=== PATIENT | female | born 1985 | race African-American/Black ===

== ENCOUNTER 2020-01-09 21:01 | Emergency (ER) | payer SELFPAY ==
[~2020-01-09] VITALS: Ht 162.6 cm; Wt 86.2 kg
[2020-01-09 21:19] VITALS: BP 206/144
[2020-01-10] MEDS ORDERED: fentaNYL CITRATE 100 MCG/2 ML VL ONE (00:42)
[2020-01-10] MEDS ORDERED: SUCCINYLCHOLINE CHLORIDE 20 MG/ML 10ML VIAL IV ONE (00:46)
[2020-01-10] MEDS ORDERED: ROCURONIUM 10MG/ML 10ML VIAL IV ONE (00:49)
[2020-01-10] MEDS ORDERED: PROPOFOL 10 MG/ML 20 ML IV ONE (01:24)
[2020-01-10] MEDS ORDERED: ONDANSETRON HCL 4 MG/2 ML VIAL ONE (01:24)
[2020-01-10] MEDS ORDERED: oxyTOCIN 10 UNIT/ML 10ML VIAL ONE (01:24)
[2020-01-10] MEDS ORDERED: hydrALAZINE HCL 20 MG/ML VL ONE (02:14)
[2020-01-10] MEDS ORDERED: LABETALOL HCL 5 MG/ML 4ML SYRINGE IV PRN (02:15)
[2020-01-10] MEDS ORDERED: METOCLOPRAMIDE HCL 5MG/ml INJ 2ml VIAL IV PRN (02:15)
[2020-01-10] MEDS ORDERED: fentaNYL CITRATE 100 MCG/2 ML VL IV PRN (02:15)
== END 2020-01-09 21:34 | disposition still patient (30) ==
LOC: ER 21:01
DX: O14.93 Unspecified pre-eclampsia, third trimester (principal)
CPT/HCPCS: 82962; J0330; J2405; J2590; J2704

== ENCOUNTER 2020-01-09 21:30 | Inpatient (IN) | payer MEDICAID, OTHER ==
[~2020-01-09] VITALS: Ht 165.1 cm; Wt 87.1 kg
[2020-01-09] MEDS ORDERED: LACTATED RINGER'S 1,000 ML IV SCH (21:51)
[2020-01-09] MEDS ORDERED: MAGNESIUM SULFATE 100 ML IV ONE (22:00)
[2020-01-09] MEDS ORDERED: hydrALAZINE HCL 20 MG/ML VL ONE (22:02)
[2020-01-09] MEDS ORDERED: MAGNESIUM SULFATE 40MG/ML 1,000 ML IV SCH (22:45)
[2020-01-09] MEDS ORDERED: BETAMETHASONE ACET (6MG/ML) 5ML VIAL IM ONE (22:45)
[2020-01-09] MEDS: hydrALAZINE HCL 20 MG/ML VL IV PRN (23:01)
[2020-01-09 23:15] LABS: Albumin 1.4 g/dL (3.4-5.0); Potassium 4.3 mmol/L (3.5-5.1); Uric Acid 6.1 mg/dL (2.6-6.0)
[2020-01-09 23:18] LABS: BUN/Creatinine Ratio 15.7; Bilirubin, Total 0.3 mg/dL (0.2-1.0); Total Protein 5.6 g/dL (6.4-8.2)
[2020-01-09 23:23] LABS: Urine Bacteria NONE SEEN /hpf (None Seen); Urine Blood 2+ /uL (Negative); Urine Specific Gravity 1.003 (1.001-1.035); Urine WBC 1 /hpf (0 - 5)
[2020-01-09 23:37] LABS: Alcohol, Urine < 3.0 mg/dL (0-10); Amphetamine Screen, Urine NEGATIVE (NEGATIVE); Barbiturate Scree,Urine NEGATIVE (NEGATIVE); Benzodiazephine Screen, Urine NEGATIVE (NEGATIVE); Cannabinoid Screen, Urine NEGATIVE (NEGATIVE); Cocaine Screen, Urine NEGATIVE (NEGATIVE); Opiate Scree,Urine NEGATIVE (NEGATIVE); Phencyclidine Screen, Urine NEGATIVE (NEGATIVE)
[2020-01-10] VITALS (10 sets, daily range): BP systolic 124–152; BP diastolic 71–103
[2020-01-10] MEDS ORDERED: GLYCOPYRROLATE 0.2 MG/ML 1ML VIAL ONE (01:29)
[2020-01-10] MEDS ORDERED: LABETALOL HCL 5 MG/ML 4ML SYRINGE IV ONE (01:41)
[2020-01-10] MEDS: LACTATED RINGER'S 1,000 ML IV SCH ×4 (01:44→21:26)
[2020-01-10] MEDS ORDERED: ONDANSETRON HCL 4 MG/2 ML VIAL IV PRN (01:45)
[2020-01-10] MEDS ORDERED: hydrALAZINE HCL 20 MG/ML VL IV ONE (02:15)
[2020-01-10 02:55] LABS: Basophils # (auto) 0.1 10 ^3/uL (0-0.2); Basophils % (auto) 0.4 % (0.0-2.0); Eosinophils # (auto) 0.1 10 ^3/uL (0-0.8); Eosinophils % (auto) 0.2 % (0.0-7.0); Hematocrit 35.8 % (36.0-46.0); Hemoglobin 11.7 g/dL (12.2-16.2); Lymphocytes % (auto) 4.7 % (10.0-50.0); Mean Corpuscular Hemoglobin 28.5 pg (28.0-32.0); Mean Corpuscular Hgb Conc. 32.6 g/dL (32.0-36.0); Mean Corpuscular Volume 87.4 fL (80.0-100.0); Monocytes # (auto) 0.5 10 ^3/uL (0-1.3); Monocytes % (auto) 2.3 % (0.0-12.0); Neutrophils # (auto) 20.4 10 ^3/uL (1.6-8.6); Neutrophils % (auto) 92.4 % (37.0-80.0); Nucleated Red Blood Cells % 0.2 %; Platelet Count (auto) 65 10^3/uL (140-450); Red Cell Distribution Width 15.8 % (11.8-14.3); White Blood Cell 22.1 10^3/uL (4.4-10.8)
[2020-01-10] MEDS ORDERED: methylPREDNISolone SOD SUCC 125 MG/2 ML VL IV STA (03:20)
[2020-01-10] MEDS ORDERED: FUROSEMIDE 40 MG/4 ML VIAL IV SCH (03:27)
[2020-01-10] MEDS ORDERED: IPRATROPIUM BROM 0.5 MG/2.5ML INH SOL NEB PRN (03:30)
[2020-01-10] MEDS ORDERED: ALBUTEROL SULF 2.5 MG/0.5ML(0.5%) NEB SOLN NEB PRN (03:30)
--- NOTE | 2020-01-10 03:30 | NUR ---
Report: Report received from Joseluis Boggs RN IN PACU on stable post-op patient.
--- NOTE | 2020-01-10 03:50 | NUR ---
Transferred: Patient transferred form PACU to LDR 2 by this RN and Joseluis Boggs RN
--- NOTE | 2020-01-10 04:00 | NUR ---
Dr. Mosqueda calls unit and speaks to Mayi PACU nurse. Mayi updates him on patient status, informs him that patient has left PACU and is now in LDRP. This RN speaks to Dr Mosqueda, informs him of therapeutic Magnesium level 5.6. Orders received to decrease magnesium infusion to 1G/hr, and repeat magnesium level 4 hours for last draw. Orders will be endorsed to primary RN.
[2020-01-10] MEDS: ACETAMINOPHEN IV 1000 MG/100ML (10MG/ML) IV PRN ×2 (04:18→21:14)
[2020-01-10] MEDS ORDERED: MAGNESIUM SULFATE 40MG/ML 1,000 ML IV SCH (04:30)
[2020-01-10] MEDS ORDERED: methylPREDNISolone SOD SUCC 125 MG/2 ML VL ONE (05:18)
[2020-01-10] MEDS: HYDROmorphone HCL 2 MG/ML VL IV PRN ×2 (05:28→13:46)
--- NOTE | 2020-01-10 05:52 | NUR ---
Jaylin: Dr. Mosqueda called regarding pitocin infusion. updated on patient status. Order recieved for 20 units of pitocin in 1,000 ml LR running at 30ml/hr. Telephone order read back
[2020-01-10] MEDS ORDERED: LACT. RINGERS/OXYTOCIN 20UNITS 1,000 ML IV ONE (06:00)
--- NOTE | 2020-01-10 06:30 | NUR ---
PERICARE PROVIDED PAD CHANGED, PT CLEANED, FUNDUS FIRM 1 BELOW SCANT BLEEDING DTR +2, DENIES HEADACHE/BLURRY VISION, A&0 X4.
[2020-01-10] MEDS: hydrALAZINE HCL 20 MG/ML VL IV PRN ×4 (08:14→17:48)
[2020-01-10 08:17] LABS: Alanine Aminotransferase 56 U/L (13-56); Albumin 1.3 g/dL (3.4-5.0); Alkaline Phosphatase 176 U/L (45-117); Anion Gap 10 (5-15); Aspartate Aminotransferase 71 U/L (15-37); BUN/Creatinine Ratio 17.4; Bilirubin, Total 0.2 mg/dL (0.2-1.0); Blood Urea Nitrogen 19 mg/dL (7-18); Calcium 7.3 mg/dL (8.5-10.1); Carbon Dioxide 14 mmol/L (21-32); Chloride 109 mmol/L (98-107); GFR African American 73 mL/min; GFR Non-African American 61 mL/min; Glucose 125 mg/dL (74-106); Potassium 4.5 mmol/L (3.5-5.1); Sodium 133 mmol/L (136-145); Total Protein 5.2 g/dL (6.4-8.2)
--- NOTE | 2020-01-10 08:46 | NUR ---
MAG LEVEL Dr. Mosqueda notified of mag level 6.3. Orders received to d/c mag and redraw levels in 2 hours. Blood pressures listed. Mag stopped per md orders.
[2020-01-10] MEDS: ceFAZolin 1GM/50ML 50 ML IV SCH ×3 (09:45→17:51)
--- NOTE | 2020-01-10 11:00 | NUR ---
PERICARE PROVIDED PAD CHANGED, PT CLEANED, FUNDUS FIRM 1 BELOW SCANT BLEEDING DTR +2, DENIES HEADACHE/BLURRY VISION, A&0 X4.
--- NOTE | 2020-01-10 11:37 | NUR ---
HIGH BP Dr barajas made aware of pts trending blood pressures. Orders received to start pt on labetelol 300 mg bid.
[2020-01-10] MEDS ORDERED: LABETALOL HCL 200 MG TAB PO SCH (12:00)
[2020-01-10] MEDS: LABETALOL HCL 200 MG TAB PO SCH ×2 (12:09→21:51)
[2020-01-10 12:37] LABS: Basophils # (auto) 0 10 ^3/uL (0-0.2); Basophils % (auto) 0.1 % (0.0-2.0); Eosinophils # (auto) 0 10 ^3/uL (0-0.8); Hematocrit 36.6 % (36.0-46.0); Hemoglobin 12.3 g/dL (12.2-16.2); Lymphocytes # (auto) 0.8 10 ^3/uL (0.4-5.4); Lymphocytes % (auto) 4.8 % (10.0-50.0); Mean Corpuscular Hemoglobin 28.8 pg (28.0-32.0); Mean Corpuscular Hgb Conc. 33.5 g/dL (32.0-36.0); Mean Corpuscular Volume 86.1 fL (80.0-100.0); Monocytes # (auto) 0.2 10 ^3/uL (0-1.3); Neutrophils # (auto) 15.7 10 ^3/uL (1.6-8.6); Neutrophils % (auto) 94.1 % (37.0-80.0); Nucleated Red Blood Cells % 0.1 %; Platelet Count (auto) 70 10^3/uL (140-450); Red Blood Cells 4.25 10^6/uL (4.0-5.20); Red Cell Distribution Width 15.9 % (11.8-14.3); White Blood Cell 16.7 10^3/uL (4.4-10.8)
[2020-01-10 13:02] LABS: INR 0.83 (0.9-1.15); Partial Thromboplastin Time 27.8 sec (23.64-32.05)
--- NOTE | 2020-01-10 13:04 | NUR ---
Dr. Mosqueda notified of new mag level result of 6.0 BPs listed. Informed pt was started on labetelol 300mgbid per dr. barajas. Orders received to keep pt off mag at this time. Informed I will be getting pt up to ambulate, orders received to keep sullivan in at this time.
--- NOTE | 2020-01-10 14:24 | NUR ---
Dr. Mosqueda rounded on pt with RN Sbar given. Per md wait to get pt up until tonight, if bps have improved. Will continue to monitor.
--- NOTE | 2020-01-10 15:30 | NUR ---
PERICARE PROVIDED PAD CHANGED, PT CLEANED, FUNDUS FIRM 1 BELOW SCANT BLEEDING DTR +2, DENIES HEADACHE/BLURRY VISION, A&0 X4.
--- NOTE | 2020-01-10 17:30 | NUR ---
PERICARE PROVIDED PAD CHANGED, PT CLEANED, FUNDUS FIRM 1 BELOW SCANT BLEEDING
--- NOTE | 2020-01-10 18:06 | NUR ---
PT ASSESSED FOR PRN MED NEB TX. SPO2 96% ON RA, HR 85. PT DENIES ANY RESPIRATORY DISTRESS. PT DENIES ANY PREVIOUS USE OF INHALER OR NEBULIZER. NO SHORTNESS OF BREATH NOTED. NO TX INDICATED AT THIS TIME. WILL CONTINUE TO MONITOR.
--- NOTE | 2020-01-10 23:37 | NUR ---
Dr. Mosqueda at nurses station Update on patient status reviewed trending Blood pressure, labs: Mg 4.7, patient has not ambulated 24 hr at 0104 and Gongora catheter still in. Verbalized understanding. Per Dr. Mosqueda let patient rest for now, may ambulate patient after 24 hours, keep Gongora in until AM about 5:00, hold off on Day 1 Post Op orders until tomorrow, day shift. Continue with POC.
[2020-01-11] MEDS: HYDROmorphone HCL 2 MG/ML VL IV PRN ×2 (00:37→04:48)
[2020-01-11] MEDS: hydrALAZINE HCL 20 MG/ML VL IV PRN ×2 (00:54→11:10)
[2020-01-11] MEDS ORDERED: ceFAZolin 1GM/50ML 50 ML IV ONE (02:00)
[2020-01-11 03:30] VITALS: BP 120/73
--- NOTE | 2020-01-11 04:35 | NUR ---
Ambulation of patient to bedside chair: Clean gown and Pericare in bed with teaching provided. Gongora catheter remains intact no kinks, hung below bladder, draining yellow urine .Hypoactive bowel sounds. ABD incision dressing C/D/I. Applied ABD binder. Fundus firm at U with scant amount of bleeding. Patient out of bed with standby assistance by this RN to bedside chair. Complete linen changed. Ice chips provided. Educated patient about S/S of PPH and to call for assistance, patient verbalized understanding. Patient remains in chair, call light within reach no S/S of distress.
--- NOTE | 2020-01-11 05:45 | NUR ---
Sullivan catheter dc'd Order to discontinue sullivan catheter. Sullivan dc'd with clean technique following deflation of balloon. Patient tolerated well with no complaints of pain. Continue care.
[2020-01-11 06:37] VITALS: BP 129/75
--- NOTE | 2020-01-11 06:58 | NUR ---
PRN [place] TX NOT INDICATED AT THIS TIME. NO SOB OR ANY OTHER RESPIRATORY DISTRESS NOTED. PT ON RA. 97% O2 SATS. WILL CONTINUE TO MONITOR PT.
--- NOTE | 2020-01-11 07:30 | NUR ---
Orders received to leave dressing open to air. Dressing removed, Lower abdominal incision approximated, no drainage/redness/inflammation visualized at time of removal. Patient verbalized understanding and willingness to comply to instructions/teaching provided.
--- NOTE | 2020-01-11 08:10 | NUR ---
Ambulation: Patient OOB with standby assistance by RN. Patient ambulated to bathroom with steady gait. Patient able to void 300 cc without difficulty. Pericare teaching provided with returned demonstration by patient. Clean gown provided and bed linen changed. Patient ambulated back to bed with steady gait and no distress noted.
[2020-01-11] MEDS ORDERED: LACTATED RINGER'S 1,000 ML IV SCH (08:34)
[2020-01-11] MEDS ORDERED: HYDROcodone-ACET 5/325MG TAB PO PRN ×2 (08:45)
--- NOTE | 2020-01-11 09:30 | NUR ---
dr davis updated on pt status with BP readings, orders recieved to saline lock IV, DC lasix, orders carried out
[2020-01-11] MEDS ORDERED: FUROSEMIDE 20 MG/2 ML VIAL IV SCH (10:00)
[2020-01-11] MEDS: LABETALOL HCL 200 MG TAB PO SCH ×2 (10:29→21:24)
[2020-01-11] MEDS: SIMETHICONE 80 MG CHEWABLE TABLET PO PRN (10:29)
[2020-01-11] MEDS: DOCUSATE SOD 100 MG CAP PO SCH ×2 (10:30→21:19)
[2020-01-11 11:03] VITALS: BP 167/101
--- NOTE | 2020-01-11 11:15 | NUR ---
DR KRISHNAN UPDATED ON BP READINGS OF 167/101, AND HYDRALAZINE 10 MG GIVEN, ORDERS RECEIVED TO START PT ON PROCARDIA 30 MG PO DAILY. ORDERS CARRIED OUT
[2020-01-11] MEDS: IBUPROFEN 800 MG TAB PO PRN ×2 (12:24→21:19)
[2020-01-11] MEDS: CALCIUM CARB 500 MG CHEW TAB PO PRN ×2 (12:31→22:26)
[2020-01-11 13:17] LABS: Basophils # (auto) 0.1 10 ^3/uL (0-0.2); Basophils % (auto) 0.6 % (0.0-2.0); Eosinophils # (auto) 0 10 ^3/uL (0-0.8); Hematocrit 27.9 % (36.0-46.0); Hemoglobin 9.1 g/dL (12.2-16.2); Lymphocytes # (auto) 0.9 10 ^3/uL (0.4-5.4); Lymphocytes % (auto) 5.4 % (10.0-50.0); Mean Corpuscular Hemoglobin 28.7 pg (28.0-32.0); Mean Corpuscular Hgb Conc. 32.6 g/dL (32.0-36.0); Monocytes # (auto) 0.8 10 ^3/uL (0-1.3); Monocytes % (auto) 4.9 % (0.0-12.0); Neutrophils # (auto) 14.3 10 ^3/uL (1.6-8.6); Neutrophils % (auto) 89.1 % (37.0-80.0); Platelet Count (auto) 99 10^3/uL (140-450); Red Blood Cells 3.17 10^6/uL (4.0-5.20); Red Cell Distribution Width 16.3 % (11.8-14.3)
[2020-01-11 13:39] LABS: Albumin 1.2 g/dL (3.4-5.0); BUN/Creatinine Ratio 13.6; Calcium 6.9 mg/dL (8.5-10.1); Potassium 3.9 mmol/L (3.5-5.1)
[2020-01-11 13:42] LABS: Bilirubin, Total 0.2 mg/dL (0.2-1.0); Total Protein 4.8 g/dL (6.4-8.2)
[2020-01-11 14:52] VITALS: BP 121/81
[2020-01-11] MEDS: ACETAMINOPHEN/CODEINE#3 (300/30mg) TAB PO PRN (16:11)
--- NOTE | 2020-01-11 17:14 | NUR ---
Assessment SS consult for no PNC. Patient stated she was taking her care during her . Patient stated she was being prescribe pills by her OB. Pt resides with and will have assistance with baby upon discharge. Pt has all supplies as well as car seat for baby and will be bottle. Pt has medical insurance for herself/baby and will be following up with provider appt post discharge. Pt has transportation home upon discharge.
[2020-01-11 18:30] VITALS: BP 144/74
--- NOTE | 2020-01-11 21:01 | NUR ---
Call placed to Jayjay Smith CNM Complete SBAR given including patients request for IV pain medication. Orders to continue with post op day 1 orders. Will continue with POC.
--- NOTE | 2020-01-11 21:12 | NUR ---
RT NOTE: PT SLEEPING WITH NO DISTRESS ON ROOM AIR. RN NOTIFIED TO HAVE RT PAGED IF SOB OCCURS. NO TX INDICATED AT THIS TIME.
[2020-01-11 23:30] VITALS: BP 141/76
[2020-01-12] MEDS: ACETAMINOPHEN/CODEINE#3 (300/30mg) TAB PO PRN ×4 (00:39→18:16)
[2020-01-12 03:30] VITALS: BP 132/92
[2020-01-12 05:10] LABS: RPR Non Reactive (Non Reactive)
[2020-01-12 06:09] LABS: Rubella Antibodies, IgG <0.90 index (Immune >0.99)
[2020-01-12 07:10] VITALS: BP 154/92
[2020-01-12] MEDS: LABETALOL HCL 200 MG TAB PO SCH ×2 (09:58→22:05)
[2020-01-12] MEDS: DOCUSATE SOD 100 MG CAP PO SCH ×2 (09:58→22:01)
[2020-01-12] MEDS: NIFEdipine ER 30 MG TAB PO SCH (10:19)
[2020-01-12 11:24] VITALS: BP 139/96
[2020-01-12] MEDS ORDERED: SODIUM CHLOR 0.9% PF (SALINE LOCK) 10ML VIAL/SYR IV SCH (14:00)
[2020-01-12 15:20] VITALS: BP 153/96
--- NOTE | 2020-01-12 16:39 | NUR ---
Respiratory note: PT ASSESSED FOR PRN MED NEB TX, NO TX DESIRED NOR INDICATED AT THIS TIME. PT AWAKE/ALERT SITTING IN BED. DENIES SOB, NO DISTRESS NOTED. HR 104 RR 16 SPO2 100% ON RA. PT AND RN AWARE TO HAVE RT PAGED IF NEEDED.
[2020-01-12 19:00] VITALS: BP 137/89
--- NOTE | 2020-01-12 19:40 | NUR ---
Respiratory note: PT ASSESSED FOR PRN MED NEB TX. HR 90, RR 16, SPO2 100% ON RA. NO S/S OF ANY RESPIRATORY. ADVISED PT TO CALL IF TX IS NEEDED.
[2020-01-12] MEDS: IBUPROFEN 800 MG TAB PO PRN (20:43)
[2020-01-12] MEDS ORDERED: BISACODYL 10 MG RECT SUPP PR PRN (21:45)
[2020-01-12] MEDS: SIMETHICONE 80 MG CHEWABLE TABLET PO PRN (22:01)
[2020-01-12 23:15] VITALS: BP 117/65
[2020-01-13 00:57] VITALS: BP 117/65
[2020-01-13 03:00] VITALS: BP 156/85
[2020-01-13 07:10] VITALS: BP 157/86
--- NOTE | 2020-01-13 08:45 | NUR ---
Dr Mosqueda on unit; SBAR given including pt BP in the last 24 hours; this RN requesting amended DC prescription substituting T3 for [place] per pt preference and will he be prescribing and labetalol for DC? Order received to hold DC at this time and continue current medication regime; orders will be carried out.
[2020-01-13] MEDS: DOCUSATE SOD 100 MG CAP PO SCH (09:36)
[2020-01-13] MEDS: NIFEdipine ER 30 MG TAB PO SCH (09:37)
[2020-01-13] MEDS: LABETALOL HCL 200 MG TAB PO SCH (09:39)
[2020-01-13] MEDS: ACETAMINOPHEN/CODEINE#3 (300/30mg) TAB PO PRN (09:40)
[2020-01-13] MEDS ORDERED: PREN-96 PO (10:07)
[2020-01-13 10:40] VITALS: BP 139/80
--- NOTE | 2020-01-13 12:13 | NUR ---
RT NOTE: PT. ASSESSED FOR PRN BREATHING TX. PT. STATES SHE DOES NOT WANT A BREATHING TX AT THIS TIME. POX 90% R/A. PT. AWARE TO NOTIFY RN IF BREATHING TX. IS INDICATED.
[2020-01-13 14:40] VITALS: BP 127/72
[2020-01-13 19:00] VITALS: BP 158/89
--- NOTE | 2020-01-13 20:00 | NUR ---
Prabhjot Smith CNM calls the unit and is given update on pt. Trending vital signs reviewed and POC discussed. ILEANA notified that pt plans to leave AMA. Prabhjot Smith encourages pt to stay.
--- NOTE | 2020-01-13 20:15 | NUR ---
Prabhjot Smith CNM calls unit and states that she spoke with Dr. Mosqueda regarding POC for this pt. Dr. Mosqueda agrees that the pt should not be discharged, but that if the pt does decide to leave AMA to call in the Labetalol and Procardia prescriptions for the pt.
--- NOTE | 2020-01-13 20:20 | NUR ---
central office repairer supervisor informed patient leaving AMA.
--- NOTE | 2020-01-13 20:22 | NUR ---
Per 's orders, [facility] called for prescriptions for Labetolol 200mg BID for one month worth and Procardia 30mg daily for one month worth by this RN. Patient aware to forklift picker prescriptions at [facility] on [address] Patient verbalizes understanding.
--- NOTE | 2020-01-13 20:30 | NUR ---
This RN explains to the pt the risks of leaving AMA. Pt states she still will be leaving AMA. Pt preparing to leave the unit. Both Prabhjot Smith CNM and Dr. Mosqueda aware of pt leaving AMA.
--- NOTE | 2020-01-13 20:35 | NUR ---
IV removal IV DC'd by Y[employer] technical advisor with clean sterile technique, catheter fully intact. Pressure dressing applied to site. Patient tolerated well.
--- NOTE | 2020-01-13 20:44 | NUR ---
AMA Note NGUYỄN GONZALEZ states they want to leave the hospital Against Medical Advice (AMA). Patient encouraged to stay for further treatment/stabilization. Prabhjot Smith CNM and Dr. Mosqueda notified of patient's wishes. Patient advised of the risks and benefits of leaving AMA. Patient verbalized understanding. Patient encouraged to return to the ER if symptoms do not improve or worsen. Pt leaves the unit at this time with all belongings ambulatory accompanied by FOB.
== END 2020-01-13 20:44 | disposition left against medical advice (07) | DRG 786 ==
LOC: LDRP 21:30 → OBSVTOIN 01-10 00:19 → LDRP 01-11 18:41
PROVIDERS: ADMIT Specialist; ATTEND Specialist
PROC: 10D00Z1 Extraction of Products of Conception, Low, Open Approach (ICD-10-PCS; principal; 2020-01-13)
DX: O69.81X0 Labor and delivery complicated by cord around neck, without compression, not applicable or unspecified (principal); O60.14X0 Preterm labor third trimester with preterm delivery third trimester, not applicable or unspecified; O75.3 Other infection during labor; O13.4 Gestational [pregnancy-induced] hypertension without significant proteinuria, complicating childbirth; O14.14 Severe pre-eclampsia complicating childbirth; E66.01 Morbid (severe) obesity due to excess calories; Z53.29 Procedure and treatment not carried out because of patient's decision for other reasons; O76 Abnormality in fetal heart rate and rhythm complicating labor and delivery; O99.214 Obesity complicating childbirth; O36.5930 Maternal care for other known or suspected poor fetal growth, third trimester, not applicable or unspecified; Z20.828 Contact with and (suspected) exposure to other viral communicable diseases; Z37.0 Single live birth; Z3A.33 33 weeks gestation of pregnancy
CPT/HCPCS: 36415; 59025; 71045; 76805; 80053; 80307; 81001; 81002; 82962; 83735; 83880; 84112; 84550; 85025; 85379; 85610; 85730; 86592; 86703; 86762; 86850; 86900; 86901; 86920; 87086; 87340; 94640; 94760; 96360; 96361; 96365; 96366; 96374; 96375; G0378; J0131; J0330; J0690; J2405; J2590; J2704; J3490

== ENCOUNTER 2020-09-21 10:06 | Inpatient (IN) | payer MEDICAID ==
[~2020-09-21] VITALS: Ht 165.1 cm; Wt 92.1 kg
[~2020-09-21 10:06] MED LIST: PREN-96 PO
[2020-09-21] MEDS ORDERED: LACTATED RINGER'S 1,000 ML IV SCH (11:00)
[2020-09-21] MEDS ORDERED: NIFEdipine 10 MG CAP PO ONE (11:00)
[2020-09-21] MEDS ORDERED: NIFEdipine 10 MG CAP ONE (11:02)
[2020-09-21 11:55] LABS: Basophils # (auto) 0.1 10 ^3/uL (0-0.2); Basophils % (auto) 0.5 % (0.0-2.0); Eosinophils # (auto) 0.2 10 ^3/uL (0-0.8); Eosinophils % (auto) 1.9 % (0.0-7.0); Hematocrit 36.9 % (36.0-46.0); Hemoglobin 12.4 g/dL (12.2-16.2); Lymphocytes # (auto) 1.4 10 ^3/uL (0.4-5.4); Lymphocytes % (auto) 11.8 % (10.0-50.0); Mean Corpuscular Hemoglobin 28.3 pg (28.0-32.0); Mean Corpuscular Hgb Conc. 33.7 g/dL (32.0-36.0); Mean Corpuscular Volume 84.1 fL (80.0-100.0); Monocytes % (auto) 8.4 % (0.0-12.0); Neutrophils # (auto) 9.1 10 ^3/uL (1.6-8.6); Neutrophils % (auto) 77.4 % (37.0-80.0); Nucleated Red Blood Cells % 0.1 %; Platelet Count (auto) 257 10^3/uL (140-450); Red Blood Cells 4.39 10^6/uL (4.0-5.20); Red Cell Distribution Width 13.7 % (11.8-14.3); White Blood Cell 11.7 10^3/uL (4.4-10.8)
[2020-09-21 12:09] LABS: INR 0.91 (0.9-1.15); Partial Thromboplastin Time 25.3 sec (23.0-31.2)
[2020-09-21 12:11] LABS: Urine Bacteria FEW /hpf (None Seen); Urine Blood Negative /uL (Negative); Urine Mucus FEW (None Seen); Urine Specific Gravity 1.025 (1.001-1.035); Urine WBC 5 /hpf (0 - 5)
[2020-09-21 12:29] LABS: Albumin 2.4 g/dL (3.4-5.0); Calcium 9.2 mg/dL (8.5-10.1)
[2020-09-21 12:34] LABS: Amphetamine Screen, Urine NEGATIVE (NEGATIVE); Barbiturate Scree,Urine NEGATIVE (NEGATIVE); Benzodiazephine Screen, Urine NEGATIVE (NEGATIVE); Cannabinoid Screen, Urine NEGATIVE (NEGATIVE); Cocaine Screen, Urine NEGATIVE (NEGATIVE); Opiate Scree,Urine NEGATIVE (NEGATIVE); Phencyclidine Screen, Urine NEGATIVE (NEGATIVE)
[2020-09-21 12:35] LABS: BUN/Creatinine Ratio 12.7; Bilirubin, Total 0.2 mg/dL (0.2-1.0); Total Protein 6.9 g/dL (6.4-8.2); Uric Acid 5.2 mg/dL (2.6-6.0)
[2020-09-22 07:06] LABS: RPR Non Reactive (Non Reactive); Rubella Antibodies, IgG <0.90 index (Immune >0.99)
[2020-09-22] MEDS ORDERED: hydrALAZINE HCL 20 MG/ML VL IV PRN (10:00)
== END 2020-09-21 14:18 | disposition short-term general hospital (02) | DRG 566 ==
LOC: LDRP 10:06 → OBSVTOIN 10:06
PROVIDERS: ADMIT Obstetrics & Gynecology; ATTEND Obstetrics & Gynecology
DX: O13.2 Gestational [pregnancy-induced] hypertension without significant proteinuria, second trimester (principal); Z3A.24 24 weeks gestation of pregnancy; Z20.822 Contact with and (suspected) exposure to COVID-19; O40.2XX0 Polyhydramnios, second trimester, not applicable or unspecified
CPT/HCPCS: 36415; 59025; 76805; 80053; 80307; 81001; 81002; 84550; 85025; 85362; 85379; 85610; 85730; 86592; 86703; 86762; 86850; 86900; 86901; 87340; 87426; 96360; 96361; G0378